=== PATIENT | male | born 1975 | race Caucasian/White ===

== ENCOUNTER 2018-09-21 15:31 | Emergency (ER) | payer MEDICAID ==
[~2018-09-21] VITALS: Ht 167.6 cm; Wt 109.0 kg
[2018-09-21 15:35] VITALS: Ht 167.6 cm; Wt 109.0 kg
[2018-09-21] MEDS ORDERED: morphine 4 MG/ML VIAL IV STA (15:48)
[2018-09-21] MEDS ORDERED: SOD CHLORIDE 0.9% 1,000 ML IV ONE ×2 (16:00)
[2018-09-21] MEDS ORDERED: ONDANSETRON 4 MG INJ IV STA (16:11)
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
[2018-09-21] MEDS ORDERED: LACTATED RINGER'S 1,000 ML IV SCH (16:30)
[2018-09-21 17:57] VITALS: BP 136/81; PULSE 63; RESP 16
== END 2018-09-21 18:34 | disposition short-term general hospital (02) ==
LOC: E/R 15:31
DX: T21.22XA Burn of second degree of abdominal wall, initial encounter (principal); T21.21XA Burn of second degree of chest wall, initial encounter; D72.829 Elevated white blood cell count, unspecified; T22.292A Burn of second degree of multiple sites of left shoulder and upper limb, except wrist and hand, initial encounter; T22.291A Burn of second degree of multiple sites of right shoulder and upper limb, except wrist and hand, initial encounter; T24.201A Burn of second degree of unspecified site of right lower limb, except ankle and foot, initial encounter; X16.XXXA Contact with hot heating appliances, radiators and pipes, initial encounter; Y92.196 Pool of other specified residential institution as the place of occurrence of the external cause
CPT/HCPCS: 16000; 80048; 85025; 96374; 96375; J2270; J2405; J7030; J7120; Z7502